=== PATIENT | female | born 1965 | race American Indian/Alaskan Native ===

== ENCOUNTER 2017-03-07 09:17 | Outpatient (CLI) | payer OTHER ==
--- NOTE | 2017-03-07 11:01 | Fluoroscopy Report ---
UPPER GI INDICATION: Gastric dyspepsia. Lap Band in 2009 in [place]. Cholecystectomy 1-2 years later. COMPARISON: None similar at this institution. FINDINGS: Upper GI performed. Patient swallowed thick and thin barium without any difficulty and also tolerated effervescent granules well. Paper Sales Representative view demonstrates normal appearance of the lap band and its connector tubing leading to the port overlying the L1 vertebral body in the midline. Nonobstructive bowel gas pattern. Cholecystectomy clips. Esophagus is normal in course. Mid to distal esophageal caliber though prominent/mildly dilated with intraluminal heterogeneity/debris/retained secretions. A standing barium column in this region also noted after a few swallows. Active peristalsis noted along the distal esophagus. No demonstratable hiatal hernia or gastroesophageal reflux. Prompt passage of small amount of contrast through the lap band into the distal stomach noted, though without sufficient mucosal coating/assessment. CONCLUSION: Mild distal esophageal prominence/dilatation with retained secretions and prominent, though small amount of contrast passage through the lap band, as described. Lap band correlation may also be obtained clinically. Thank you for the opportunity to participate in this patient's care.
== END 2017-03-07 09:18 | disposition home or self-care (01) ==
LOC: FLUORO 09:17
PROVIDERS: ATTEND Specialist
DX: K30 Functional dyspepsia (principal)
CPT/HCPCS: 74247